=== PATIENT | male | born 1960 ===

== ENCOUNTER → 2022-10-25 | Outpatient (REF) | payer SELFPAY ==
[2022-10-25 13:47] LABS: ALB/GLOB Ratio 1.2 RATIO (0.9-2.4); AST(SGOT) 17 U/L (15-37); Alanine Aminotransfer ALT/SGPT 36 U/L (16-61); Albumin, Serum 4.1 g/dL (3.2-5.0); Alkaline Phosphatase 76 U/L (45-117); Anion Gap 10 (5-15); BUN 18 mg/dL (7-18); BUN/Creat Ratio 16.5 RATIO (10-20); Calcium,Total 9.6 mg/dL (8.5-10.1); Chloride 105 mmol/L (98-107); Cholesterol 179 mg/dL (200); Creatinine, Serum 1.09 mg/dL (0.70-1.30); EST Glomerular Filtration Rate 73 mL/min (>60); Est Glom Filt Rate - Afr Amer 88 mL/min (>60); Globulin 3.4 g/dL (2.2-4.2); Glucose 193 mg/dL (74-106); High Density Lipoprotein 36 mg/dL; Potassium 4.5 mmol/L (3.5-5.1); Protein, Total 7.5 g/dL (6.4-8.2); Sodium Level 139 mmol/L (136-145); Triglycerides 238 mg/dL; Very Low Density Lipoprotein 48 mg/dL (5-40)
[2022-10-28 08:11] LABS: DHEA Sulfate 97.8 ug/dL (48.9-344.2); PSA, Free 0.22 ng/mL; PSA, Free % 21.8 % (.)
== END ==
LOC: LABSPEC 13:28
PROVIDERS: Visit Provider Nurse Practitioner Family
DX: G93.2 Benign intracranial hypertension (principal)
CPT/HCPCS: 80053; 80061; 82627; 84153; 84154; 84403; 82626